=== PATIENT | female | born 1955 | race Caucasian/White ===

== ENCOUNTER → 2016-07-21 | Outpatient (CLI) | payer OTHER | LOC: WI 07:55 | PROVIDERS: ATTEND Student in an Organized Health Care Education/Training Program | DX: Z12.31 Encounter for screening mammogram for malignant neoplasm of breast (principal) | CPT/HCPCS: 77067; G0202 ==

== ENCOUNTER 2019-03-12 11:44 | Emergency (ER) | payer OTHER ==
[2019-03-12] MEDS ORDERED: ACETAMINOPHEN 325 MG TABLET PO ONE (11:55)
[2019-03-12] MEDS ORDERED: IBUPROFEN 600 MG TABLET PO ONE (11:55)
--- NOTE | 2019-03-12 12:00 | ER Document Report ---
HPI - HPI Time Seen by Provider: 03/12/19 11:50 Pain Level: 3 Context: Patient is a 63-year-old female who presents emergency department after a fall. Patient states that she had stumbled over some of her husbands walking sticks and ended up falling on that area and she was okay last night when it happened, but this morning she has pain to her right ribs. She denies any blood thinner use. Denies any past medical history, does not take any medications. She has n ot taken any medications to help with the pain. - CONSTITUTIONAL Constitutional: DENIES: Fever, Chills - EENT EENT: DENIES: Sore Throat, Ear Pain, Nasal Drainage-Clear, Nasal Drainage- Purulent - NEURO Neurology: DENIES: Headache - CARDIOVASCULAR Cardiovascular: REPORTS: Chest pain - chest wall pain - RESPIRATORY Respiratory: DENIES: Trouble Breathing, Coughing - GASTROINTESTINAL Gastrointestinal: DENIES: Abdominal Pain, Nausea, Patient vomiting, Diarrhea - REPRODUCTIVE Reproductive: DENIES: : - MUSCULOSKELETAL Musculoskeletal: REPORTS: Back Pain - right mid to low - DERM Skin Color: Normal Skin Problems: None Past Medical History - Social History Smoking Status: Former Smoker Chew tobacco use (# tins/day): No Frequency of alcohol use: None Drug Abuse: None Family History: Reviewed & Not Pertinent Patient has suicidal ideation: No Patient has homicidal ideation: No Pulmonary Medical History: Reports: Hx Pneumonia - 5 yrs ago Denies: Hx Tuberculosis Past Surgical History: Reports: Hx Hysterectomy. Denies: Hx Pacemaker - Immunizations Hx Diphtheria, Pertussis, Tetanus Vaccination: Yes Hx Pneumococcal Vaccination: 03/19/11 Vertical Provider Document - CONSTITUTIONAL Agree With Documented VS: Yes Exam Limitations: No Limitations General Appearance: No Apparent Distress - INFECTION CONTROL TRAVEL OUTSIDE OF THE [place] IN LAST 30 DAYS: No - HEENT HEENT: Atraumatic, Normocephalic, PERRLA - NECK Neck: Normal Inspection - RESPIRATORY Respiratory: No Respiratory Distress - CARDIOVASCULAR Cardiovascular: Regular Rate, Regular Rhythm Pulses: Normal: Radial - BACK Back: Normal Inspection - MUSCULOSKELETAL/EXTREMETIES Musculoskeletal/Extremeties: FROM, Tender - Right lower anterior lateral left ribs, No Edema. negative: Eccymosis - NEURO Level of Consciousness: Awake, Alert, Appropriate Motor/Sensory: No Motor Deficit, No Sensory Deficit - DERM Integumentary: Warm, Dry, No Rash Course - Re-evaluation Re-evalutation: 03/12/19 Patient's x-ray was negative for any acute findings. No displaced rib fractures noted. I have advised the patient to follow-up with a primary care provider, as she does not have one, but does have insurance. She will be sent home with Robaxin to help with back pain if needed. No bruising noted. Very low suspicion for any intra-abdominal or intrathoracic hemorrhage, or any other life-threatening etiology at this time. Follow-up precautions were given. Verbal discharge instructions were given to the patient. They verbalized understanding. They are stable for discharge. - Vital Signs Vital signs: Temp Pulse Resp BP Pulse Ox 97.8 F 77 20 131/75 H 98 03/12/19 11:48 03/12/19 11:48 03/12/19 11:48 03/12/19 11:48 03/12/19 11:48 Discharge - Discharge Clinical Impression: Right hip pain Rib contusion Qualifiers: Encounter type: initial encounter Laterality: right Qualified Code(s): S20.211A - Contusion of right front wall of thorax, initial encounter Back pain Qualifiers: Back pain location: low back pain Chronicity: acute Back pain laterality: right Sciatica presence: without sciatica Qualified Code(s): M54.5 - Low back pain Fall Qualifiers: Encounter type: initial encounter Qualified Code(s): W19.XXXA - Unspecified fall, initial encounter Condition: Stable Disposition: HOME, SELF-CARE Additional Instructions: You were seen today in the emergency department after a fall. Your x-ray did not show any displaced rib fractures at this time. Please follow-up with a primary care provider in regards to this visit. See if you can get a referral for physical therapy. Continue taking ibuprofen 600 mg and acetaminophen 1000 mg every 6 hours for your pain. You are being sent home with Robaxin, medication to help relax your muscles. You can use ice, 20 minutes on, 20 minutes off for the next couple of days. Then switch to heat after the next 2 days. You may take the Robaxin given to you today tonight about an hour before you go to bed. Prescriptions: Methocarbamol [Robaxin 500 mg Tablet] 500 mg PO QHS PRN #10 tablet PRN Reason: Forms: Special Work Note Referrals: TERESA WALL, [Primary Care Provider] - Follow up in 3-5 days
--- NOTE | 2019-03-12 12:28 | RADIOLOGY REPORT (SQ) ---
EXAM DESCRIPTION: RIBS RIGHT W/PA CHEST COMPLETED DATE/TIME: 03/12/2019 12:18 pm REASON FOR STUDY: rib pain; fall COMPARISON: None. TECHNIQUE: Frontal view of the chest and additional views of the right ribs acquired. NUMBER OF VIEWS: Three view. LIMITATIONS: None. FINDINGS: FRONTAL CXR: No pneumothorax. No pleural effusion. No atelectasis or infiltrates. RIBS: No displaced rib fractures. No lytic or blastic bony lesions. OTHER: No other significant finding. IMPRESSION: NO PNEUMOTHORAX. NO DISPLACED RIB FRACTURES. COMMENT: SITE OF TRAUMA/COMPLAINT MARKED/STAMP COMPLETED: YES. TECHNICAL DOCUMENTATION: JOB ID: [id number] [employer]- All Rights Reserved Reading location - IP/workstation name: [email or web address]
[2019-03-12] MEDS ORDERED: METHOCARBAMOL 500 MG TABLET PO ONE (13:00)
[2019-03-12 13:01] VITALS: BP 123/70
== END 2019-03-12 13:15 | disposition home or self-care (01) ==
LOC: ER 11:44
DX: S20.211A Contusion of right front wall of thorax, initial encounter (principal); R07.81 Pleurodynia; R07.89 Other chest pain; M54.5 Low back pain; M25.551 Pain in right hip; W01.0XXA Fall on same level from slipping, tripping and stumbling without subsequent striking against object, initial encounter; Z87.891 Personal history of nicotine dependence
CPT/HCPCS: 99283